=== PATIENT | female | born 1950 | race Caucasian/White ===

== ENCOUNTER 2017-04-03 11:47 | Inpatient (IN) | payer OTHER ==
[2017-04-03] MEDS ORDERED: ONDANSETRON 4 MG/2 ML VIAL IVP PRN (15:25)
[2017-04-03] MEDS ORDERED: ALBUTEROL 3 ML DEYVIAL IH PRN (15:25)
[2017-04-03] MEDS ORDERED: ONDANSETRON DISINTEGRATING 4 MG TAB PO PRN (15:25)
[2017-04-03] MEDS ORDERED: ALBUTEROL 60 PUFFS/8 GM MDI IH PRN (15:25)
[2017-04-03] MEDS ORDERED: OXYCODONE/APAP 5/325 TAB PO PRN (15:25)
[2017-04-03] MEDS ORDERED: IPRATROPIUM BROMIDE 0.5 MG/2.5 ML DEYVIAL IH PRN (15:29)
[2017-04-03] MEDS ORDERED: BENZONATATE 100 MG CAP PO PRN (15:29)
[2017-04-03] MEDS ORDERED: TELMISARTAN 40 MG TAB PO SCH (15:30)
--- NOTE | 2017-04-03 15:31 | NEUSURGPN ---
Assessment/Plan: Consult H/P note Hard copy consult noted completed. This in on the chart in paper form. Neurosurgery Physical Exam - Vitals, I&O, Labs I and O 04/02/17 04/03/17 04/04/17 05:59 05:59 05:59 Weight 26 kg Vital Signs Temp Pulse Resp BP Pulse Ox 36.9 C 59 L 16 164/81 H 95 04/03/17 14:00 04/03/17 14:00 04/03/17 14:00 04/03/17 14:00 04/03/17 14:00 ICD10 Worksheet Patient Problems: Problems Problem Status Onset Cervical radicular pain Acute Cervical stenosis of spine Acute Lumbar back pain Acute Lumbar radicular pain Acute Lumbar stenosis Acute - ICD10 Problem Qualifiers (1) Cervical stenosis of spine (2) Cervical radicular pain (3) Lumbar back pain (4) Lumbar stenosis (5) Lumbar radicular pain
--- NOTE | 2017-04-03 16:10 | CPEKG ---
Heart Rate: 56 RR Interval: 1071 P-R Interval: 208 QRSD Interval: 104 QT Interval: 420 QTC Interval: 406 P [place]: 42 QRS [place]ern: -12 T Wave [place]: 156 EKG Severity - ABNORMAL ECG - EKG Impression: SINUS RHYTHM EKG Impression: NONSPECIFIC T ABNORMALITIES, ANT-LAT LEADS Electronically Signed By: Ke Valladares 03-Apr-2017 17:47:37
--- NOTE | 2017-04-03 16:19 | GHP ---
[f rep st] HISTORY AND PHYSICAL DATE OF ADMISSION: 04/03/2017 CHIEF COMPLAINT: Lumbar back pain. HISTORY OF PRESENT ILLNESS: This is a 67-year-old female who reports that she initially had a cervical neck injury 32 years prior. Then in 2013, because of severe lumbar back pain, she had an extensive fusion performed from L3 to S1 by Dr. Hinton. 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 The pain radiates from her lumbar spine region to the anterior thigh and into her buttocks bilaterally. The pain is incapacitating, decreasing her mobility significantly. Normally, for the last 5 years, she has been ambulatory on her own so long as she had something to hold onto, and then when outside, would use a walker or an electric wheelchair. She lives alone and manages by herself with the help of a caregiver coming 2 hours a day 5 days a week. She has progressively been incapacitated due to the pain and immobility for the last 2 months. PAST MEDICAL HISTORY: Known asthma, currently under treatment; hypertension and glaucoma. She denies diabetes or prior coronary artery disease. PAST SURGICAL HISTORY: She has had the 2 toes amputated on the right foot in 2010. A cholecystectomy was performed in December of 2016. Left breast was biopsied in 1994, with multiple biopsies with findings of a benign tumor, and then there was a left breast reconstruction. Oophorectomy in 1990, total vaginal hysterectomy and appendectomy in 1980, along with a tonsillectomy in 1967. ALLERGIES: Lyrica, causing agitation. Neurontin, she reports makes her homicidal. Depakote makes her shaky. Dye in myelograms causes her to itch. Lisinopril causes lip swelling and difficulty breathing. Albuterol makes her high and shaky. Adhesives cause welts and watery blisters on her skin. REVIEW OF SYSTEMS: The patient reports she has not felt well in the last 15 years and feels very depressed. She says nothing makes her happy. Medically, she denies any recent fever, chills, sweats, sore throat, cough, chest pain, shortness of breath, abdominal pain, dysuria frequency of urination, chronic kidney disease, or peripheral joint difficulties. She does have a known peripheral neuropathy bilaterally in both of her feet starting at the ankles, with decreased sensation but not decreased motor function in her feet bilaterally. The remainder of a 10-point review of systems was negative. SOCIAL HISTORY: The patient lives alone in a single family home, on 1 level. She lives in [place]. She has a caregiver who assists 2 hours a day 5 days a week. Previously, she had worked in medical records and insurance billing. She is currently . She has been twice, with the first dying of cancer and the second dying of a stroke. FAMILY HISTORY: Positive for hypertension in her mother and father. Her son had malignant hyperthermia as a child. PHYSICAL EXAMINATION: GENERAL: This is a pleasant female who reports she is feeling in pain. VITAL SIGNS: She was initially normal blood pressure but then kadi later during the hospitalization. Heart rate normal. She has normal oxygenation on room air and is afebrile. HEENT: Remarkable for normal posterior oropharynx, but small and narrow. NECK: Supple and nontender. Cervical spines are nontender. The overall body habitus is that of an obese lady. CHEST: Chest wall is difficult to palpate overall, but she has no inspiratory splinting. The patient could not move much during my exam due to extreme lumbar back pain. Lungs were clear to percussion and auscultation. HEART: Very distant heart sounds. No murmur could be appreciated. Breasts are without masses, tenderness or erythema. ABDOMEN: Obese, surgical scar is noted and healing well. There are no masses, tenderness, or organomegaly. Palpation of the upper thigh and lower back results in increase in the patient' s pain as she reports pain radiates from her back into these areas. Any movement of her legs results in increasing lumbar back pain. The feet show decreased sensations bilaterally. She has normal dorsi and plantar flexion. The right foot is remarkable for the amputation of her great toe and 2nd toe. LABORATORY DATA: CBC, TSH, urinalysis, CMP are pending at the time of this dictation. A chest x-ray and ECG are pending at time of dictation and preoperative evaluation. ASSESSMENT: 1. Severe lumbar back pain secondary to lumbar spinal stenosis at the L2-L3 region, per my reading of the CT scan performed here. The patient has come with a disc of images, which will be reviewed later. At this point, the patient is incapacitated secondary to the pain, nearly unable to move and finds it extremely painful and difficult to walk. She is under consideration for neurosurgical care, and neurosurgery will be consulting. 2. Cervical pain. The patient is under the impression that she must have neck surgery before she has her lumbar surgery. Clinically, her neck is nontender, and this aspect of her history contradicts the findings of her lumbar spine. This should be investigated further with the patient. 3. Asthma. This is currently in good control, and her usual bronchodilators will be continued. 4. Hypertension. She has been normotensive and now slightly high and will restart her usual antihypertensive regime. 5. Pain management will be with her usual medication, along with IV Dilaudid as needed. 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 6. Peripheral neuropathy bilaterally of the lower extremities. This is long- standing and chronic. 7. Depression. Will continue her Cymbalta. I note in her medications she takes regular Klonopin, which may be exacerbating her depression more than helping. Preoperatively, I do not suggest we begin decreasing her medication, but it is certainly a consideration postoperatively. 8. Her deep vein thrombosis prophylaxis places her at high risk, and she will be placed on Lovenox. 9. Code status: DNR; patient has a MOST signed on the chart. This was reviewed with the patient and affirmed. 10. Billing status: The patient will be admitted to inpatient with neurosurgical consultation. Time: This admission required 55 minutes. /[id number]/MODL MTDD
[2017-04-03] MEDS: DULoxetine 30 MG CAP PO SCH ×2 (16:30→20:55)
[2017-04-03] MEDS: (Difluprednate [Durezol] 1 DROP) OP SCH ×2 (16:34→23:14)
[2017-04-03] MEDS: oxyCODONE IR 5 MG TAB PO PRN ×2 (16:52→20:48)
[2017-04-03] MEDS: TEARS/DEXTRAN 70/HYPROMELLOSE 15 ML OPHT.BTL OP SCH ×2 (16:56→23:14)
[2017-04-03] MEDS: MONTELUKAST SODIUM 10 MG TAB PO SCH (20:49)
[2017-04-03] MEDS: clonazePAM 0.5 MG TAB PO SCH (20:49)
[2017-04-03] MEDS: DOCUSATE SODIUM 100 MG CAP PO SCH (20:50)
[2017-04-03] MEDS: LOSARTAN/HCTZ 50/12.5 1 TAB PO SCH (20:54)
[2017-04-03] MEDS ORDERED: NON-FORMULARY NEW DRUG (Losartan/Hydrochlorothiazide [Losartan-Hctz 100-25 Mg Tab] 1 EACH) PO SCH (21:00)
[2017-04-03 21:13] LABS: PLATELET COUNT 217 10^3/uL (150-400)
[2017-04-03 22:12] LABS: INR 0.98 (0.83-1.16); PROTIME(PATIENT) 13.2 SEC (12.0-15.0)
[2017-04-03] MEDS: MELOXICAM 15 MG PO SCH (23:14)
[2017-04-03] MEDS: HYDROmorphONE/DILAUDID 2 MG TAB PO PRN (23:57)
[2017-04-04] MEDS: LOSARTAN/HCTZ 50/12.5 1 TAB PO SCH ×3 (00:02→21:35)
[2017-04-04] MEDS: oxyCODONE IR 5 MG TAB PO PRN ×5 (05:31→23:57)
[2017-04-04] MEDS: LEVOTHYROXINE 150 MCG TAB PO SCH (05:31)
[2017-04-04] MEDS: DOCUSATE SODIUM 100 MG CAP PO SCH ×2 (08:30→21:37)
[2017-04-04] MEDS: clonazePAM 0.5 MG TAB PO SCH ×2 (08:30→21:37)
[2017-04-04] MEDS: CALCIUM CARB W/VIT D 500 MG TAB PO SCH (08:31)
[2017-04-04] MEDS: DULoxetine 30 MG CAP PO SCH ×2 (08:31→21:35)
[2017-04-04] MEDS: POTASSIUM CL 20 MEQ TAB PO SCH (08:31)
[2017-04-04] MEDS: TEARS/DEXTRAN 70/HYPROMELLOSE 15 ML OPHT.BTL OP SCH ×3 (08:32→22:17)
[2017-04-04] MEDS: (Difluprednate [Durezol] 1 DROP) OP SCH ×3 (08:32→22:17)
[2017-04-04] MEDS: HYDROmorphONE/DILAUDID 2 MG TAB PO PRN ×2 (08:44→21:06)
[2017-04-04] MEDS ORDERED: POTASSIUM CHLORIDE 20 MEQ PO SCH (09:00)
[2017-04-04] MEDS ORDERED: ENOXAPARIN 40 MG/0.4 ML SYR SC SCH (09:00)
[2017-04-04] MEDS ORDERED: ALTEPLASE 2 MG VIAL IVP PRN (09:22)
[2017-04-04] MEDS: HYDROmorphONE/DILAUDID 1 MG/ML INJ IVP PRN ×2 (10:02→21:47)
--- NOTE | 2017-04-04 11:03 | PDMN ---
Medical Necessity Medical necessity: Pt meets IP criteria per MD; est los >2 mn for eval/tx of severe lumbar back pain secondary to L2-L3 lumbar spinal stenosis w/inability to walk, as well as cervical pain; pt directly admitted for Neuro Surgery consult, IV pain meds & therapies; hx asthma, htn, peripheral neuropathy; per H& P & order 04/03/17
--- NOTE | 2017-04-04 12:22 | NEUSURGPN ---
Assessment/Plan: 67 yo female female with hx of prior Lumbar fusion, multiple medical problems with horrible back pain, leg pain. C-spine xrays, CT/MRI reviewed. MRI lumbar spine shows L2/3 adjacent segment disease liekly the cuase of her back and leg pain however, MRI C- spine shows severe central canal stenosis at C5-6 and with ossification of the ligaments as well. She will need to address her cervical spien prior to her lumbar spine due to the high risk of paralysis or spinal cord damage with manipulation of her neck while she is prone from lumbar surgery. -Admitted to medicine and will need medical clearance prior to proceeding with surgery. Appreciate medicine service for this! -If cleared for surgery medically, will proceed with C5/C6 corpectomy and fusion. If cleared today/tomorrow, surgery could likely occur this weekend by Dr. Rivera conventions reservationist -Patient with high opioid tolerance and will liekly need pharmacy pain consult prior to surgery to help with postop pain -May be able to get lumbar injection at L2/3 after cervical surgery to help with leg pain while recovering from Cervical Surgery -Discussed with Dr. Rivera Subjective: Patient in severe back and left leg pain, unable to move without being in sever pain. Denies loss of bowel or bladder incontinence. Eager to move forward with surgical plan. Understands that due to risks, cervical surgery needs to occur first. - Physician Discussed Patient with Dr.: Rivera Neurosurgery Physical Exam - Vitals, I&O, Labs I and O 04/03/17 04/04/17 04/05/17 05:59 05:59 05:59 Output Total 1200 300 Balance -1200 -300 Weight 26 kg Output: Urine (ml) 1200 300 Bedside Commode 1200 300 Other: Intake Quantity Yes Sufficient Number of Voids Bedside Commode 1 Vital Signs Temp Pulse Resp BP Pulse Ox 36.8 C 65 16 132/80 H 92 04/04/17 11:13 04/04/17 11:13 04/04/17 11:13 04/04/17 11:13 04/04/17 11:13 Laboratory Results 04/03/17 20:53 04/03/17 20:53 ICD10 Worksheet Patient Problems: Problems Problem Status Onset Cervical radicular pain Acute Cervical stenosis of spine Acute Lumbar back pain Acute Lumbar radicular pain Acute Lumbar stenosis Acute
--- NOTE | 2017-04-04 15:39 | HOSPPROG ---
Hospitalist Progress Note Assessment/Plan: 67-year-old female admitted with severe lower back pain. MRI of the lumbar spine shows L2-L3 disease as the cause of her back and leg pain. MRI of the C- spine shows severe central canal stenosis at C5-6. As result cervical spine surgery needs to be done before lumbar surgery due to cervical neck manipulation for her lumbar surgery. Today the patient's lower back pain continues to be severe and it is very difficult for her to move without severe pain. She denies stool or bladder incontinence. -severe lumbar back pain and central canal. Cervical stenosis at C5 and 6. Plan is for surgery in the next 1-2 days. -patient is medically cleared for surgery. Laboratories are all normal with normal PTT and platelet count. ECG shows only sinus rhythm and is otherwise normal. Chest x-ray is clear. Her activity score would place her at 1-4 Mets per day. The primary limitation is are severe pain. The Revised Cardiac risk Index is 0.4% for adverse cardiovascular events post op due to non cardiac surgery. Overall she will be at some increased risk due to obesity though this can be decreased with pain management, pulmonary care of incentive spirometer, and PT. -Post op pain management: will discuss and plan with pharmacy. -HTN currently in good control. Plan: -patient is medically cleared for surgery -will follow along with you. Subjective: Reports her pain continues with some stabilization although she has very severe pain with any motion. She is able to sit on the side of the bed dangling her legs causes increasing pain. Denies chest pain shortness of breath nausea or vomiting. She is eating and moving her bowels although her appetite is decreased Objective: Vital Signs Temp Pulse Resp BP Pulse Ox 36.8 C 65 16 132/80 H 92 04/04/17 11:13 04/04/17 11:13 04/04/17 11:13 04/04/17 11:13 04/04/17 11:13 Laboratory Results 04/03/17 20:53 04/03/17 20:53 04/03/17 04/04/17 04/05/17 05:59 05:59 05:59 Output Total 1200 300 Balance -1200 -300 PT 13.2 SEC (12.0-15.0) 04/03/17 20:53 INR 0.98 (0.83-1.16) 04/03/17 20:53 - Time Spent With Patient Time Spent with Patient: greater than 35 minutes Time Spent with Patient: Greater than 35 minutes spent on this patients care, greater than 50% of time spent counseling, educating, and coordinating care regarding the above mentioned plan. - Pending Discharge Pending Discharge Within 24 Hours: No Pending Discharge Within 48 Hours: No - Physical Exam Constitutional: chronically ill appearing, other (Chronic illness secondary to chronic pain.) Eyes: PERRL, anicteric sclera Ears, Nose, Mouth, Throat: moist mucous membranes, hearing normal, ears appear normal Cardiovascular: regular rate and rhythym, no murmur, rub, or gallop Respiratory: no respiratory distress, no rales or rhonchi, clear to auscultation Gastrointestinal: normoactive bowel sounds, soft, non-tender abdomen, no palpable masses, other (Obese) Genitourinary: no bladder fullness Skin: warm Musculoskeletal: other (Tenderness to palpation and pain in the upper thighs and lower lumbar back. Any movement of the legs increases her low back pain. Muscle muscle strength is otherwise decreased secondary to pain) Neurologic: AAOx3, CN II-XII Intact Psychiatric: interacting appropriately ICD10 Worksheet Patient Problems: Problems Problem Status Onset Cervical radicular pain Acute Cervical stenosis of spine Acute Lumbar back pain Acute Lumbar radicular pain Acute Lumbar stenosis Acute
[2017-04-04] MEDS: MONTELUKAST SODIUM 10 MG TAB PO SCH (21:36)
[2017-04-04] MEDS: ENOXAPARIN 40 MG/0.4 ML SYR SC SCH (21:41)
[2017-04-04] MEDS: MELOXICAM 15 MG PO SCH (22:17)
[2017-04-05] MEDS: ACETAMINOPHEN 325 MG TAB PO PRN ×2 (00:52→16:21)
[2017-04-05] MEDS: HYDROmorphONE/DILAUDID 2 MG TAB PO PRN ×3 (02:09→16:56)
[2017-04-05] MEDS: HYDROmorphONE/DILAUDID 1 MG/ML INJ IVP PRN (03:12)
[2017-04-05] MEDS: LEVOTHYROXINE 150 MCG TAB PO SCH (04:37)
[2017-04-05] MEDS: oxyCODONE IR 5 MG TAB PO PRN ×3 (04:38→21:56)
[2017-04-05] MEDS ORDERED: NALOXONE HCL 0.4 MG/ML INJ IVP PRN (08:04)
[2017-04-05] MEDS ORDERED: HYDROmorphONE/DILAUDID 6 MG/30 ML PCA IV PRN (08:04)
[2017-04-05] MEDS: CALCIUM CARB W/VIT D 500 MG TAB PO SCH (08:10)
[2017-04-05] MEDS: DOCUSATE SODIUM 100 MG CAP PO SCH ×2 (08:11→21:55)
[2017-04-05] MEDS: DULoxetine 30 MG CAP PO SCH ×2 (08:11→20:07)
[2017-04-05] MEDS: POTASSIUM CL 20 MEQ TAB PO SCH (08:11)
[2017-04-05] MEDS: (Difluprednate [Durezol] 1 DROP) OP SCH ×2 (08:11→16:53)
[2017-04-05] MEDS: clonazePAM 0.5 MG TAB PO SCH ×2 (08:11→20:06)
[2017-04-05] MEDS: TEARS/DEXTRAN 70/HYPROMELLOSE 15 ML OPHT.BTL OP SCH ×3 (08:19→23:17)
[2017-04-05] MEDS: ENOXAPARIN 40 MG/0.4 ML SYR SC SCH (08:19)
--- NOTE | 2017-04-05 10:11 | HOSPPROG ---
Hospitalist Progress Note Assessment/Plan: 67-year-old female admitted with severe lower back pain. MRI of the lumbar spine shows L2-L3 disease as the cause of her back and leg pain. MRI of the C- spine shows severe central canal stenosis at C5-6. As result cervical spine surgery needs to be done before lumbar surgery due to cervical neck manipulation for her lumbar surgery. today patient pain 7/10 in low back, neck in without pain; Bp is elevated without c/o chest pain. Nursing report wheezing. -severe lumbar back pain and central canal. Cervical stenosis at C5 and 6. Plan is for surgery tomorrow AM is planned for neck -patient is medically cleared for surgery. Laboratories are all normal with normal PTT and platelet count. ECG shows only sinus rhythm and is otherwise normal. Chest x-ray is clear. Her activity score would place her at 1-4 Mets per day. The primary limitation is are severe pain. The Revised Cardiac risk Index is 0.4% for adverse cardiovascular events post op due to non cardiac surgery. Overall she will be at some increased risk due to obesity though this can be decreased with pain management, pulmonary care of incentive spirometer, and PT. -Post op pain management: currently pain is 7/10 in low back. Current pain management included: Klonopin, oxycodone IR 20mg q4h, and norco q4h. Plan: Robaxin 750mg tid Obtain pain management records from PCP Dr Nikita Berger, at [facility] in [place]. Records have been requested. The question here is to avoid excess sedation while obtaining adequate pain relief. Monitor SaO2 -HTN slight elevated. Plan:-add norvasc. Patient allergic to Torito and is bradycardic thus cannot use BB -Wheezing question: none noted on exam, continue Prn albuterol Plan: -patient is medically cleared for surgery -will follow along with you. -pain management per above -records requested. -avoid ASA and NSAID meds pre-op -hold lovenox tonight Subjective: Reports she is feeling tired but encouraged that there will be surgery and possible relief of her pain. Procedure for her cervical work and then lumbar work were explained to her. She denies bowel or bladder incontinence Objective: Vital Signs Temp Pulse Resp BP Pulse Ox 36.8 C 53 L 16 147/90 H 95 04/05/17 08:21 04/05/17 08:21 04/05/17 08:21 04/05/17 08:21 04/05/17 08:21 Laboratory Results 04/03/17 20:53 04/03/17 20:53 04/04/1718 04/06/17 05:59 05:59 05:59 Intake Total 500 500 Output Total 1200 1100 Balance -1200 -600 500 PT 13.2 SEC (12.0-15.0) 04/03/17 20:53 INR 0.98 (0.83-1.16) 04/03/17 20:53 - Time Spent With Patient Time Spent with Patient: greater than 35 minutes Time Spent with Patient: Greater than 35 minutes spent on this patients care, greater than 50% of time spent counseling, educating, and coordinating care regarding the above mentioned plan. - Pending Discharge Pending Discharge Within 24 Hours: No Pending Discharge Within 48 Hours: No - Physical Exam Constitutional: no apparent distress, chronically ill appearing, other (Appears to be in pain and discomfort) Eyes: PERRL, anicteric sclera Ears, Nose, Mouth, Throat: moist mucous membranes, hearing normal Cardiovascular: regular rate and rhythym, no murmur, rub, or gallop Respiratory: no respiratory distress, no rales or rhonchi, clear to auscultation , other (No inspiratory or expiratory wheezing noted) Gastrointestinal: normoactive bowel sounds, soft, non-tender abdomen, no palpable masses, other (Obesity noted) Genitourinary: no bladder fullness Skin: warm Musculoskeletal: generalized weakness, other (Pain in the upper thighs to palpation and with any movement of her legs.) Neurologic: AAOx3, CN II-XII Intact Psychiatric: interacting appropriately ICD10 Worksheet Patient Problems: Problems Problem Status Onset Cervical radicular pain Acute Cervical stenosis of spine Acute Lumbar back pain Acute Lumbar radicular pain Acute Lumbar stenosis Acute
--- NOTE | 2017-04-05 11:19 | ASMTCMCOM ---
CM Note CM Note Notes: Chart reviewed, spoke with primary RN. Patient to likely have C-spine surgery this weekend and maybe spinal injection after that. Needs to be determined after that. CM to follow. Date Signed: 04/05/2017 11:18 AM Electronically Signed By:Chanda Sabillon LCSW
--- NOTE | 2017-04-05 11:31 | SOAPPROG ---
[facility] Progress Note Assessment/Plan: Assessment: 67F admitted with back pain and was found to have severe cervical stenosis at C5-6 from OPLL with focal kyphosis. Plan: - She will need to have her cervical issue fixed before we can work on her lumbar spine - planning C5-6 corpectomy for tomorrow - NPO after midnight - appreciate medicine help with pain management - I did discuss with her that the hyperesthesia that she is complaining of in the legs I don't expect to get better with any surgical procedure. This is most likely part of her chronic pain syndrome. I also don't expect much improvement in her back pain, but would hope she would get some relief with the neurogenic claudication once we are able to do her lumbar surgery. We will plan to proceed tomorrow with the C5-6 corpectomy, C4-7 fusion. 04/05/17 11:25 Subjective: complains of back pain Objective: Vital Signs Temp Pulse Resp BP Pulse Ox 36.8 C 53 L 16 147/90 H 95 04/05/17 08:21 04/05/17 08:21 04/05/17 08:21 04/05/17 08:21 04/05/17 08:21 Laboratory Results 04/03/17 20:53 04/03/17 20:53 04/04/17 04/05/17 04/06/17 05:59 05:59 05:59 Intake Total 500 500 Output Total 1200 1100 Balance -1200 -600 500 PT 13.2 SEC (12.0-15.0) 04/03/17 20:53 INR 0.98 (0.83-1.16) 04/03/17 20:53 AAOx3, full strength and sensation, no drift, hyperesthesia in the legs, non- dermatomal - Pending Discharge Pending Discharge Within 24 Hours: No Pending Discharge Within 48 Hours: No ICD10 Worksheet Patient Problems: Problems Problem Status Onset Cervical radicular pain Acute Cervical stenosis of spine Acute Lumbar back pain Acute Lumbar radicular pain Acute Lumbar stenosis Acute
[2017-04-05] MEDS: amLODIPine BESYLATE 5 MG TAB PO SCH (11:57)
[2017-04-05] MEDS: METHOCARBAMOL 750 MG TAB PO SCH ×2 (16:21→21:56)
[2017-04-05] MEDS: clonazePAM 0.5 MG TAB PO PRN (18:50)
[2017-04-05] MEDS: HYDROCODONE/APAP 5/325 TAB PO PRN (20:07)
[2017-04-05] MEDS: MONTELUKAST SODIUM 10 MG TAB PO SCH (20:08)
[2017-04-05] MEDS: LOSARTAN/HCTZ 50/12.5 1 TAB PO SCH (20:14)
[2017-04-05] MEDS ORDERED: NS W/ 20 KCl/L 1,000 ML IV SCH (22:30)
[2017-04-05] MEDS ORDERED: hydrALAZINE 20 MG/ML VIAL IVP ONE (22:48)
[2017-04-06] MEDS: HYDROmorphONE/DILAUDID 2 MG TAB PO PRN ×2 (00:56→04:43)
[2017-04-06] MEDS: oxyCODONE IR 5 MG TAB PO PRN ×3 (02:17→18:17)
[2017-04-06] MEDS: (Difluprednate [Durezol] 1 DROP) OP SCH ×4 (03:31→22:00)
[2017-04-06] MEDS: MELOXICAM 15 MG PO SCH ×2 (03:32→23:21)
[2017-04-06] MEDS: clonazePAM 0.5 MG TAB PO PRN ×2 (04:44→17:47)
[2017-04-06] MEDS: LEVOTHYROXINE 150 MCG TAB PO SCH (04:44)
[2017-04-06 05:13] LABS: PLATELET COUNT 200 10^3/uL (150-400)
[2017-04-06 05:22] LABS: INR 1.07 (0.83-1.16); PROTIME(PATIENT) 14.1 SEC (12.0-15.0)
[2017-04-06] MEDS ORDERED: CHLORHEXIDINE GLUC HIBICLENS 118 ML BTL TP ONE ×2 (06:31→07:53)
[2017-04-06] MEDS: FLUTICASONE NASAL 120 SPRAYS/16 GM MDI EACHNARE SCH (06:50)
[2017-04-06] MEDS ORDERED: ROCURONIUM 100 MG/10 ML VIAL ONE (07:51)
[2017-04-06] MEDS ORDERED: fentaNYL 100 MCG/2 ML INJ ONE ×5 (07:51→13:23)
[2017-04-06] MEDS ORDERED: HYDROmorphONE/DILAUDID 2 MG/ML INJ ONE ×3 (07:51→13:33)
[2017-04-06] MEDS ORDERED: PROPOFOL 200 MG/20 ML VIAL ONE (07:52)
[2017-04-06] MEDS: clonazePAM 0.5 MG TAB PO SCH ×2 (07:52→21:20)
[2017-04-06] MEDS ORDERED: THROMBIN (BOVINE) 5,000 UNIT VIAL TP ONE (07:54)
[2017-04-06] MEDS ORDERED: BUPIVACAINE 0.25% 30 ML SDV ONE (07:54)
[2017-04-06] MEDS ORDERED: BACITRACIN 50,000 UNITS/10 ML SYR IRR ONE ×2 (07:54→08:06)
[2017-04-06] MEDS ORDERED: THROMBIN (BOVINE) 20,000 UNIT VIAL TP ONE (08:05)
[2017-04-06] MEDS ORDERED: KETAMINE 200 MG/20 ML VIAL ONE (08:13)
[2017-04-06] MEDS ORDERED: PROPOFOL/EMULSION 500 MG/50 ML BOTTLE IV ONE ×8 (08:13→13:13)
[2017-04-06] MEDS ORDERED: DEXMEDETOMIDINE/NS 4MCG/ML 50 ML BTL IV ONE ×3 (08:16→15:49)
[2017-04-06] MEDS ORDERED: MIDAZOLAM 2 MG/2 ML VIAL IVP ONE (08:28)
--- NOTE | 2017-04-06 08:31 | PDANEPAE ---
ANE History of Present Illness cervical stenosis ANE Past Medical History Past Medical History: fm of - Cardiovascular History Hx Hypertension: Yes - Pulmonary History Hx Asthma/Reactive Airway Disease: Yes Hx Oxygen in Use at Home: Yes O2 in Use at Home (L/minute): 2 Hx Sleep Apnea: No Sleep Apnea Screening Result - Last Documented: Positive - Endocrine History Hx Diabetes: No Obesity: moderate - Other Health History Other Health History: Family history of MH - Chronic Pain History Chronic Pain: Yes ANE Review of Systems Review of Systems: - Exercise capacity Exercise capacity: limited by disability ANE Patient History - Allergies Allergies/Adverse Reactions: albuterol Allergy (Verified 04/03/17 13:43) divalproex sodium [From Depakote] Allergy (Verified 04/03/17 13:43) gabapentin Allergy (Verified 04/03/17 13:43) lisinopril Allergy (Verified 04/03/17 13:43) pregabalin [From Lyrica] Allergy (Verified 04/03/17 13:39) ADHESIVES Allergy (Uncoded 04/03/17 13:43) MYLEGRAM DYE Allergy (Uncoded 04/03/17 13:43) - Home Medications Home Medications: Benzonatate [Tessalon Pearles (RX)] 100 mg PO TID PRN 04/03/17 [Last Taken Unknown] Calcium Carb W/Vit D [Calcium Carb W/Vit D 500/200 (*)] 1,000 mg PO DAILY [Last Taken Unknown] DULoxetine [Cymbalta 30 MG (*)] 30 mg PO DAILY 04/03/17 [Last Taken 04/03/17] DULoxetine [Cymbalta 30 MG (*)] 60 mg PO HS 04/03/17 [Last Taken 04/02/17] Dextran 70/Hypromellose [Genteal Tears 0.1%-0.3% Drop] 1 drop OP TID 04/03/17 [ Last Taken Unknown] Difluprednate [Durezol] 1 drop OP TID 04/03/17 [Last Taken Unknown] Docusate Sodium [Colace 100 MG (*)] 200 mg PO BID 04/03/17 [Last Taken 04/03/17] HYDROmorphone HCL [Dilaudid 2 mg (*)] 2 mg PO Q4 PRN 04/03/17 [Last Taken Unknown] Ipratropium [Atrovent Neb (*)] 0.5 mg IH DAILY PRN 04/03/17 [Last Taken Unknown] Levothyroxine [Synthroid 150 mcg (*)] 150 mcg PO DAILY06 04/03/17 [Last Taken ] Losartan/Hydrochlorothiazide [Losartan-Hctz 100-25 mg Tab] 1 each PO HS [Last Taken Unknown] Meloxicam [Mobic 15 mg] 15 mg PO HS 04/03/17 [Last Taken 04/02/17] Montelukast Sodium [Singulair 10 mg (*)] 10 mg PO HS 04/03/17 [Last Taken Unknown] Oxymetazoline HCl [Afrin Nasal [place] (OTC)] 1 spray EACHNARE BID 04/03/17 [Last Taken Unknown] Potassium Chloride [K-Tab ER] 20 meq PO DAILY 04/03/17 [Last Taken 04/03/17] Telmisartan [Micardis 40 mg (*)] 40 mg PO DAILY 04/03/17 [Last Taken 04/03/17] clonIDINE [Catapres (*)] 0.1 mg PO BID 04/03/17 [Last Taken 04/03/17] clonIDINE [Catapres (*)] 0.1 mg PO HS PRN 04/03/17 [Last Taken Unknown] clonazePAM [Klonopin (*)] 0.5 mg PO DAILY 04/03/17 [Last Taken 04/03/17] clonazePAM [Klonopin (*)] 0.5 mg PO TID PRN MDD 2.5MG 04/03/17 [Last Taken Unknown] clonazePAM [Klonopin (*)] 1 mg PO HS 04/03/17 [Last Taken Unknown] oxyCODONE IR [Oxycodone Ir (*)] 20 mg PO Q4 PRN 04/03/17 [Last Taken 04/03/17] - NPO status NPO Status: no food or drink >8 hours NPO Since - Liquids (Date): 04/06/17 NPO Since - Liquids (Time): 00:00 NPO Since - Solids (Date): 04/06/17 NPO Since - Solids (Time): 00:00 - Smoking Hx Smoking Status: Never smoked ANE Labs/Vital Signs - Labs Result Diagrams: 04/06/17 04:50 04/06/17 04:50 - Vital Signs Blood Pressure: 170/96 Heart Rate: 59 Respiratory Rate: 17 O2 Sat (%): 94 Height: 170.18 cm Weight: 117.934 kg ANE Physical Exam - Airway Neck exam: decreased ROM Mallampati Score: Class 3 Mouth exam: normal dental/mouth exam - Pulmonary Pulmonary: no respiratory distress - Cardiovascular Cardiovascular: regular rate and rhythym - ASA Status ASA Status: IV ANE Anesthesia Plan Anesthesia Plan: general endotracheal anesthesia ( precautions in place) Total IV Anesthesia: Yes
[2017-04-06] MEDS ORDERED: MIDAZOLAM 2 MG/2 ML VIAL ONE (08:32)
[2017-04-06] MEDS ORDERED: LACTULOSE 20 GM/30 ML UDCUP PO PRN (08:37)
[2017-04-06] MEDS ORDERED: MAGNESIUM HYDROXIDE 30 ML UDCUP PO PRN (08:37)
[2017-04-06] MEDS ORDERED: POLYETHYLENE GLYCOL 3350 17 GM PKT PO PRN (08:37)
[2017-04-06] MEDS ORDERED: BISACODYL 10 MG SUPP PR PRN (08:37)
[2017-04-06] MEDS ORDERED: SURGIFLO MATRIX KIT WITH THROMBIN 8ml TP ONE (11:00)
[2017-04-06] MEDS ORDERED: fentaNYL 100 MCG/2 ML INJ IVP PRN (13:27)
[2017-04-06] MEDS ORDERED: NALOXONE HCL 0.4 MG/ML INJ IVP PRN ×2 (13:27→14:12)
[2017-04-06] MEDS ORDERED: PROMETHAZINE HCL 25 MG/ML INJ IVP PRN (13:27)
[2017-04-06] MEDS ORDERED: DEXAMETHASONE 4 MG/ML VIAL IVP PRN (13:27)
[2017-04-06] MEDS ORDERED: HYDROmorphONE/DILAUDID 1 MG/ML INJ IVP PRN (13:27)
[2017-04-06] MEDS ORDERED: NS W/ 20 KCl/L 1,000 ML IV SCH (14:15)
--- NOTE | 2017-04-06 14:18 | SOAPPROG ---
SOAP Progress Note Assessment/Plan: Assessment: 67 yo F sp C5/6 corpectomy with C4-7 plating Plan: stable HOB up 30 degrees hard collar at all times JAVIER to suction please call with neuro changes 04/06/17 14:16 Subjective: + neck pain, no arm pain. Objective: Vital Signs Temp Pulse Resp BP Pulse Ox 36.9 C 59 L 17 170/96 H 94 04/06/17 07:41 04/06/17 08:31 04/06/17 08:31 04/06/17 08:31 04/06/17 08:31 Laboratory Results 04/06/17 04:50 04/06/17 04:50 04/05/17 04/06/17 04/07/17 05:59 05:59 05:59 Intake Total 500 900 400 Output Total 1100 800 Balance -600 100 400 PT 14.1 SEC (12.0-15.0) 04/06/17 04:50 INR 1.07 (0.83-1.16) 04/06/17 04:50 somnolent PERRL, no facial droop COREY x4 + light touch C/D/I ICD10 Worksheet Patient Problems: Problems Problem Status Onset Cervical radicular pain Acute Cervical stenosis of spine Acute Lumbar back pain Acute Lumbar radicular pain Acute Lumbar stenosis Acute
--- NOTE | 2017-04-06 14:25 | POSTANESTH ---
Post Anesthetic Evaluation Cardiovascular Status: Normal, Stable Respiratory Status: Normal, Stable Level of Consciousness/Mental Status: Mildly Sleepy, Arousable Pain Control: Adequate, Prn Tx Ordered Nausea/Vomiting Control: Adequate, Prn Tx Ordered Complications Possibly Related to Anesthesia: None Noted
[2017-04-06] MEDS ORDERED: DEXMEDETOMIDINE HCL 400 MCG in NS 100 ML IV SCH (14:30)
--- NOTE | 2017-04-06 14:53 | HOSPPROG ---
Hospitalist Progress Note Assessment/Plan: Assessment: 67-year-old female admitted with severe lower back pain in setting of severe C5-C6 stenosis and L2-L3 disease Plan: # Cervical stenosis. C5-C6, severe, POD#[address] Rivera - JAVIER drain anteriorly - received high doses of IV dilaudid, difficult pain mgmt, transferring to SDU for possible precedex as she wakes up - d/w Avinash Fabian NSGY provider, reports CSF leak, bedrest orders # Chronic pain w/ continuous opiate and benzodiazepine dependency. Patient on two short-acting opiates as outpt, will d/w patient tomorrow to determine best methods moving forward - trialing robaxin scheduled - bowel regimen # HTN. Chronic, added norvasc, monitor # Suspected atelectasis. Cont IS # Morbid Obesity. BMI 40, increases post-op risk of worsening mobility/morbidity - PT/OT - will likely require SNF at [place] Diet. Regular when wakes PPx. High risk, SCDs today, plan for lovenox when JAVIER drainage slows Code. DNR Dispo. ADD uncertain Subjective: resting comfortably, able to follow commands Objective: Vital Signs Temp Pulse Resp BP Pulse Ox 36 C 59 L 11 L 123/77 H 96 04/06/17 14:23 04/06/17 08:31 04/06/17 14:36 04/06/17 14:36 04/06/17 14:36 Laboratory Results 04/06/17 04:50 04/06/17 04:50 04/05/17 04/06/17 04/07/17 05:59 05:59 05:59 Intake Total 500 900 400 Output Total 1100 800 Balance -600 100 400 PT 14.1 SEC (12.0-15.0) 04/06/17 04:50 INR 1.07 (0.83-1.16) 04/06/17 04:50 - Physical Exam Constitutional: no apparent distress, not in pain, chronically ill appearing, obese, No uncomfortable Cardiovascular: edema (trace bilat LE), No systolic murmur, No irregularly irregular, No tachycardia Respiratory: no respiratory distress, no rales or rhonchi, clear to auscultation , reduced air movement (shallow) Gastrointestinal: normoactive bowel sounds, soft, non-tender abdomen, no palpable masses, No distension Skin: other (ruborous L great toe) Musculoskeletal: other (R great toe TMA) Psychiatric: not anxious, encephalopathic, flat affect, No agitated ICD10 Worksheet Patient Problems: Problems Problem Status Onset Cervical radicular pain Acute Cervical stenosis of spine Acute Lumbar back pain Acute Lumbar radicular pain Acute Lumbar stenosis Acute
[2017-04-06] MEDS: CALCIUM CARB W/VIT D 500 MG TAB PO SCH (15:02)
[2017-04-06] MEDS: DOCUSATE SODIUM 100 MG CAP PO SCH ×2 (15:02→21:21)
[2017-04-06] MEDS: TEARS/DEXTRAN 70/HYPROMELLOSE 15 ML OPHT.BTL OP SCH ×3 (15:03→22:00)
[2017-04-06] MEDS: POTASSIUM CL 20 MEQ TAB PO SCH (15:04)
[2017-04-06] MEDS: SENNOSIDES/DOCUSATE SODIUM TAB PO SCH ×2 (15:04→21:00)
[2017-04-06] MEDS: METHOCARBAMOL 750 MG TAB PO SCH ×4 (15:04→23:25)
[2017-04-06] MEDS: amLODIPine BESYLATE 5 MG TAB PO SCH (15:50)
[2017-04-06] MEDS: DEXMEDETOMIDINE IN 0.9 % NACL 50 ML IV SCH ×4 (15:59→23:30)
[2017-04-06] MEDS: DULoxetine 30 MG CAP PO SCH ×2 (16:00→21:00)
[2017-04-06] MEDS: POTASSIUM Cl (KCl) 20 MEQ in NS 1,000 ML IV SCH (16:15)
--- NOTE | 2017-04-06 16:56 | GOP ---
[f rep st] OPERATIVE REPORT DATE OF OPERATION: 04/06/2017 SURGEON: Hema Rivera MD NEUROSURGEON: Hema Rivera MD POLICEWOMAN: Avinash Fabian PA-C ANESTHESIA: General endotracheal. 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 PROCEDURE PERFORMED: 1. C5, C6 corpectomy. 2. Placement of interbody corpectomy cage at C5-C6. 3. Anterior instrumented fusion C4-C7. 4. Microsurgical removal of posterior osteophytes with spinal cord compression. 5. O-arm stereotactic navigation for localization of levels and decompression. 6. Use of the operative microscope. 7. Intraoperative neurophysiologic monitoring including somatosensory evoked potentials and motor evoked potentials. FINDINGS: successful corpectomy with CSF leak BRIEF CLINICAL HISTORY: Blanca Solitario is a 67-year-old woman with history of lumbar fusions who presented to my partner, Dr. Fregoso' office, with low back pain. 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 However, she was also found to have a focal kyphosis at C5-6 in the cervical spine with posterior osteophyte formation consistent with ossification of the posterior longitudinal ligament. There was severe canal stenosis and some right-sided cord compression, although she does not have symptoms of myelopathy. Prior to any further lumbar surgery which would require her to be prone we felt it best that she have the cervical spine decompressed. We proceeded electively today with that procedure. ESTIMATED BLOOD LOSS: 150 mL. DESCRIPTION OF PROCEDURE: After informed consent was obtained from the patient , the patient was brought to the operating room and was placed in the supine position on the operating table. A formal time-out was performed, identifying the patient by name, medical record number, and date of . Preoperative antibiotics were given. The endotracheal tube was placed and general endotracheal anesthesia was smoothly induced. The patient's head was placed in the Arteaga pins and the neck was extended. All appropriate leads were placed for intraoperative neurophysiologic monitoring and baseline potentials were obtained. The neck was then prepped and draped in the normal sterile fashion. The O-arm was brought into the field and a stereotactic spin showing the skull base down to the thoracic spine was obtained. Using the spin we were able to stereotactically localize the level of the incision. 10 mL of 0.25% Marcaine with epinephrine was infiltrated in the skin for hemostasis. We then made the skin incision and the subcutaneous tissues were dissected using monopolar electrocautery. The platysma was identified and the platysma was then opened in line with its fibers. The medial border of the sternocleidomastoid was dissected widely and the carotid artery was retracted slightly laterally. The prevertebral fascia was opened and again the Stealth was used to localize the area over the C5 vertebral body. We then cleared the anterior surface of the spine of its fascial attachments and the longus colli muscles were elevated from the lower portion of C4 to the upper portion of C7 on both sides. Self- retaining retractors were placed. The patient's BMI over 45 and the extensive posterior osteophytes involving the dura made the painstaking dissection take much longer than anticipated and doubled the time of the surgery. The Rillito distraction pins were then placed in the C4 and C7 vertebral bodies and some distraction was placed across these spaces. The operative microscope was then brought onto the field and the remainder of the procedure was performed under high-power magnification. We began by performing complete diskectomies at C4-5 and C6-7. The posterior longitudinal ligament was opened toward the left side where the osteophytes were not as prominent. The dura was identified and the posterior longitudinal ligament was completely opened. On the right side at C6- 7 it was very difficult to visualize the dura due to the OPLL and this portion was left for later. After both diskectomies had been performed the C5 and C6 vertebral bodies were completely removed in the midline using Leksell rongeurs. Once we had thinned the posterior aspect toward the central canal the high- speed drill was used to drill a trough and then Kerrison punches were carefully used to undercut the bone on the left side where there was a nice dural plane. We were then able to visualize the osteophytes in their extent and they were growing significantly into the dura. Careful manipulation and drilling with the 2 mm sharad drill bit was performed and we attempted to thin the bone such that we could decompress the thecal sac without completely removing the bone which was completely incorporated into the dura. This was not possible as when we had finally drilled through the bone there was no remaining dura. There were a few small pin holes in the arachnoid which were slightly leaking CSF. Ultimately as we continued to remove the osteophytes the dura from this portion of the spinal canal was removed completely along with them. The anterior surface of the spinal cord was well visualized and the motor evoked potentials remained stable throughout this entire part of the procedure. Eventually after painstaking dissection, we were able to completely decompress the lateral spinal canal on the right side. The potentials again remained stable and the nerves appeared to be well decompressed laterally. Once these osteophytes were completely removed the canal seemed to be well decompressed. At this point, all bleeding was controlled using bipolar electrocautery and Gelfoam. A piece of onlay DuraGen was then cut to size and placed over the arachnoid, reconstructing the thecal sac. This was covered with some powdered Gelfoam. The wound was then copiously irrigated. The endplates were then sized for a 40 mm cage and the stackable Medtronic PTC cages were then stacked into a cage of 40 mm and packed with the locally harvested autograft from the vertebral bodies. This was then placed into the interspace between C4 and C7 under direct vision. At this point, a 2nd O-arm spin was obtained showing a good alignment of the cage as we were unable to see it with x-rays through the shoulders. At this point, the anterior surface was sized for a 55 mm [place] translational plate which was secured to the C4 and C7 vertebral bodies using 4 x 16 mm screws. A single 4 x 11 mm screw was placed into the cage to hold it in place to the plate. X-rays were obtained after the plate placement to be sure that the screws were in good position. They appeared to be. Again, the motor evoked potentials and somatosensory-evoked potentials remained stable. At this point the wound was copiously irrigated using bacitracin irrigation. A JAVIER drain was placed in the prevertebral space and tunneled out sterilely. All bleeding was controlled with bipolar electrocautery. The platysma was closed using interrupted 3-0 Vicryl. Deep dermis was closed using interrupted 3-0 Vicryl. The skin was closed using Dermabond. Sterile dressings were placed. The patient was awakened in the operating room. She was taken the PACU in stable condition. There were no operative complications. I was scrubbed and present for the entire procedure. All sponge and needle counts were correct at the end of the case. FLUIDS AND URINE OUTPUT: Per the anesthesia record. DRAIN: A prevertebral JAVIER. /[id number]/MODL MTDD
[2017-04-06] MEDS: HYDROmorphONE/DILAUDID 1 MG/ML INJ IVP PRN ×2 (17:08→21:21)
[2017-04-06] MEDS: ceFAZolin 2 GM/SWFI 2 GM/20 ML SYR IVP SCH (21:59)
[2017-04-06] MEDS: LOSARTAN/HCTZ 50/12.5 1 TAB PO SCH (23:25)
[2017-04-07] MEDS: DEXMEDETOMIDINE IN 0.9 % NACL 50 ML IV SCH ×4 (03:30→18:54)
[2017-04-07] MEDS: ceFAZolin 2 GM/SWFI 2 GM/20 ML SYR IVP SCH (04:59)
[2017-04-07] MEDS: LEVOTHYROXINE 150 MCG TAB PO SCH (04:59)
[2017-04-07] MEDS: MONTELUKAST SODIUM 10 MG TAB PO SCH ×2 (05:00→20:41)
[2017-04-07] MEDS: HYDROmorphONE/DILAUDID 1 MG/ML INJ IVP PRN (05:09)
[2017-04-07 05:28] LABS: PLATELET COUNT 177 10^3/uL (150-400)
[2017-04-07] MEDS: POTASSIUM Cl (KCl) 20 MEQ in NS 1,000 ML IV SCH (05:36)
--- NOTE | 2017-04-07 06:49 | NEUSURGPN ---
Date of Surgery: 04/06/17 Post Op Day: 1 Assessment/Plan: Assessment: 67 yo F sp C5/6 corpectomy with C4-7 plating POD #1 Plan: -neuro stable -HOB up 30 degrees -CSF leak intraoperatively-HOB up -JAVIER in place -hard collar at all times -JAVIER to suction -post op xrays pending today -please call with neuro changes -plan for SDU and if does well we can transfer to floor tomorrow -pt updated on plan -call with any questions or concerns Subjective: Awake and alert. Follows commands. No new events or concerns. No f/c/n/v/d. Objective: Awake and alert PERRL, no facial droop CN 2-12 grossly intact COREY x4 + light touch C/D/I Neuro Check Frequency: per routine Urinary Catheter in Place: No - Physician Discussed Patient with : Nicole Patient Seen by : Nicole Neurosurgery Physical Exam - Vitals, I&O, Labs I and O 04/06/17 04/07/17 04/08/17 05:59 05:59 05:59 Intake Total 900 3355 Output Total 800 2180 Balance 100 1175 Weight 117.934 kg Intake: Oral (ml) 900 5 IV Intake (ml) 2950 IV Infused (ml) 400 NS W/ 20 KCl/L 1,000 ml @ 400 75 mls/hr IV CONT ALICJA Rx #:[id number] Output: Urine (ml) 800 1210 Bedside Commode 800 200 Catheter 1010 Estimated Blood Loss (ml) 400 JAVIER Drain Output (ml) 570 #1 Axel Lewis 570 Other: Intake Quantity Yes Sufficient Number of Voids Bedside Commode 2 Number of Stools Catheter 0 Vital Signs Temp Pulse Resp BP Pulse Ox 37.1 C 41 L 12 108/54 L 100 04/07/17 06:00 04/07/17 06:00 04/07/17 06:00 04/07/17 06:00 04/07/17 06:00 Laboratory Results 04/07/17 05:10 04/07/17 05:10 ICD10 Worksheet Patient Problems: Problems Problem Status Onset Cervical radicular pain Acute Cervical stenosis of spine Acute Lumbar back pain Acute Lumbar radicular pain Acute Lumbar stenosis Acute - ICD10 Problem Qualifiers (1) Cervical stenosis of spine (2) Cervical radicular pain (3) Lumbar back pain (4) Lumbar stenosis (5) Lumbar radicular pain
[2017-04-07] MEDS: oxyCODONE IR 5 MG TAB PO PRN (07:46)
[2017-04-07] MEDS: CALCIUM CARB W/VIT D 500 MG TAB PO SCH (10:33)
[2017-04-07] MEDS: (Difluprednate [Durezol] 1 DROP) OP SCH ×3 (10:33→20:39)
[2017-04-07] MEDS: clonazePAM 0.5 MG TAB PO SCH ×2 (10:33→20:39)
[2017-04-07] MEDS: amLODIPine BESYLATE 5 MG TAB PO SCH (10:33)
[2017-04-07] MEDS: DULoxetine 30 MG CAP PO SCH ×2 (10:34→20:40)
[2017-04-07] MEDS: METHOCARBAMOL 750 MG TAB PO SCH ×3 (10:34→20:41)
[2017-04-07] MEDS: POTASSIUM CL 20 MEQ TAB PO SCH (10:34)
[2017-04-07] MEDS: DOCUSATE SODIUM 100 MG CAP PO SCH ×2 (10:34→20:40)
[2017-04-07] MEDS: SENNOSIDES/DOCUSATE SODIUM TAB PO SCH ×2 (10:34→20:41)
[2017-04-07] MEDS: HYDROmorphONE/DILAUDID 6 MG/30 ML PCA IV PRN ×2 (11:13→22:53)
[2017-04-07] MEDS: TEARS/DEXTRAN 70/HYPROMELLOSE 15 ML OPHT.BTL OP SCH ×3 (12:13→20:33)
[2017-04-07] MEDS: FLUTICASONE NASAL 120 SPRAYS/16 GM MDI EACHNARE SCH (12:13)
[2017-04-07] MEDS: hydrALAZINE 20 MG/ML VIAL IVP PRN (12:13)
[2017-04-07] MEDS: DIAZEPAM 10 MG/2 ML SYR IVP PRN ×3 (12:39→23:19)
--- NOTE | 2017-04-07 13:05 | HOSPPROG ---
Hospitalist Progress Note Assessment/Plan: Assessment: 67-year-old female admitted with severe lower back pain in setting of severe C5-C6 stenosis and L2-L3 disease Plan: # Cervical stenosis. C5-C6, severe, POD#[address] Rivera - JAVIER drain anteriorly continued output - cont in cervical collar, remain NPO given her difficult swallow/positioning - CSF leak, keep HOB 30 deg # Chronic pain w/ continuous opiate and benzodiazepine dependency. Patient on high dose, two short-acting opiates and scheduled + PRN klonipin as outpt, having uncontrolled pain on dilaudid [employer] after holding precedex gtt - d/w RN, patient is opiate dependent and is likely having withdraw pain which is exacerbating her current, post-surgical pain - place her back on precedex gtt to gain control of pain via sedation while continuing low rate basal dilaudid - once controlled, then increase dilaudid basal rate slightly, and lower/wean precedex gtt - additionally, starting scheduled valium 5mg IV q6 to prevent benzo withdraw - monitor resp status closely to prevent oversedation, and follow all SDU/ICU policy/protocol for Rx # Acute encephalopathy. Evidenced by global brain dysfunction characterized as somnolence, agitation, all of which are changes from baseline, 2/2 toxic effects of Rx (precedex) required to accomplish pain relief - cont to balance pain mgmt w/ functional status # HTN. Chronic, uncontrolled in setting of pain and w/o oral Rx - start scheduled enalapril q6, cont IV hydralazine for SBP > 180 # Suspected atelectasis. Cont IS # Morbid Obesity. BMI 40, increases post-op risk of worsening mobility/morbidity - PT/OT - will likely require SNF at [place] # Constipation. Hold on bowel regimen until pain better controlled, may need suppository tomorrow Diet. Regular when wakes PPx. High risk, SCDs instead of lovenox given JAVIER drain output and SBP > 200 Code. DNR Dispo. ADD uncertain High complexity patient, high risk for worsening morbidity and mortality in the setting of uncontrolled pain requiring Precedex drip, Dilaudid [employer], IV antihypertensives. Subjective: patient initially very comfortable and cooperative; later crying in pain Objective: Vital Signs Temp Pulse Resp BP Pulse Ox 36.3 C 57 L 12 178/87 H 99 04/07/17 07:41 04/07/17 11:52 04/07/17 11:52 04/07/17 12:13 04/07/17 11:52 Laboratory Results 04/07/17 05:10 04/07/17 05:10 04/06/17 04/07/17 04/08/17 05:59 05:59 05:59 Intake Total 900 3355 Output Total 800 2180 Balance 100 1175 PT 14.1 SEC (12.0-15.0) 04/06/17 04:50 INR 1.07 (0.83-1.16) 04/06/17 04:50 - Physical Exam Constitutional: chronically ill appearing, obese, uncomfortable, No no apparent distress (severe distress), No not in pain (severe pain) Cardiovascular: edema (trace bilat LE), No systolic murmur, No irregularly irregular, No tachycardia, No bradycardia Respiratory: no respiratory distress, no rales or rhonchi, clear to auscultation Gastrointestinal: normoactive bowel sounds, soft, non-tender abdomen, no palpable masses Neurologic: No sensation intact bilaterally (subj paresthesias bilat dorsum of feet), No weakness (motor 5/5 bilat banquet attendant, 5/5 bilat toe movements), No facial droop Psychiatric: anxious, agitated, poor insight, poor judgement, poor memory, other (somnolent) ICD10 Worksheet Patient Problems: Problems Problem Status Onset Cervical stenosis of spine Acute Cervical radicular pain Acute Lumbar back pain Acute Lumbar stenosis Acute Lumbar radicular pain Acute
--- NOTE | 2017-04-07 14:37 | GCON ---
[f rep st] CONSULTATION HISTORY OF PRESENT ILLNESS: This patient is a 67-year-old female who has a longstanding history of b ack surgeries and chronic pain, opiate dependency, who was admitted with worsening pain and immobilit y on 04/03/2017. She underwent a C5-6 corpectomy and fusion on 04/06. She is fairly stable postoper atively without any complications, but has had some difficulty managing pain control. She has also h ad some difficulty with swallowing and failed a swallow evaluation this morning. She is morbidly obe se but does have a caregiver visit her at home and uses an electric wheelchair on a regular basis. S he has been quite somnolent. Her pain was treated with Precedex overnight, and the drip was eventual ly stopped, but she continued to have difficulty with pain, and so it was restarted until we can bett er control of it over this period of time. REVIEW OF SYSTEMS: Otherwise negative. PAST MEDICAL HISTORY: Includes: 1. Asthma. 2. Hypertension. 3. Glaucoma. PAST SURGICAL HISTORY: Includes: 1. Toe amputations on the right foot. 2. Cholecystectomy. 3. Breast biopsy, which was benign. 4. Left breast reduction. 5. Hysterectomy with oophorectomy. 6. Appendectomy. 7. Tonsillectomy. ALLERGIES: Multiple including Lyrica, Neurontin, Depakote, lisinopril, albuterol, adhesives. SOCIAL HISTORY: She actually lives in [place]. No smoking or significant alcohol. FAMILY HISTORY: Includes hypertension. CURRENT MEDICATIONS: Include Tylenol, [place], albuterol, Norvasc, Tessalon Perles, Dulcolax, Klonopin , clonidine, Precedex, Valium, docusate, Cymbalta, Vasotec, Lovenox, Flonase, Hyzaar, hydralazine, Di laudid, Atrovent, Synthroid, Robaxin, Singulair, oxycodone, Percocet, MiraLAX, Micardis. PHYSICAL EXAMINATION: VITAL SIGNS: She was afebrile but hypertensive at 178/87. Heart rate 90, in sinus rhythm. It was earlier as low as 44 without hypotension. Respiratory rate 12. Oxygen saturat ion 95% on 2 L. GENERAL: She was a morbidly obese woman with a C-collar in place who was easily ekaterina usable from sleep by voice, in no apparent distress, and not using any accessory muscles for breathin g. HEENT: Pupils equally round and reactive to light. Nonicteric and noninjected. Mucous membrane s are moist without erythema or exudate. NECK: Incisions appear to be clean and dry without soaked dressings, but I did not remove the C-collar. LUNGS: Breath sounds were distant but clear to auscul tation bilaterally. HEART: Regular rate and rhythm without murmurs, rubs, gallops. ABDOMEN: Soft, nontender, nondistended, without hepatosplenomegaly. EXTREMITIES: No clubbing, cyanosis, or edema. NEUROLOGICAL: Nonfocal. OBJECTIVE DATA: Includes a white count of 9.3, hematocrit 33, platelets of 177. Basic metabolic pearson el was fairly unremarkable save for a bicarb of 32. ASSESSMENT AND PLAN: 1. Recent cervical spine surgery. I believe the plan is for her to recover from this and eventually have lumbar surgery 6-[address]. Pain management is obviously the biggest issue at the moment. She is getting some relaxants in there as well as her Dilaudid patient controlled analgesia, and hopefully we will be able to wean the Precedex to off. 2. Cerebrospinal fluid leak as a result of her surgery. She has to keep the head of her bed elevate d and give this time, and presumably it will heal on its own. 3. Hypertension. Her blood pressure is better with pain control, but we will have to continue her o utpatient medications. 4. Asthma. This is well controlled at this time and requires no immediate change in management. /[id number]/MODL
[2017-04-07] MEDS: ENALAPRILAT DIHYDRATE 1.25 MG/ML VIAL IVP SCH ×2 (15:15→17:54)
[2017-04-07] MEDS: POTASSIUM Cl (KCl) 40 MEQ in D5W 1/2 NS 1,000 ML IV SCH (17:01)
[2017-04-07] MEDS: LOSARTAN/HCTZ 50/12.5 1 TAB PO SCH (20:40)
[2017-04-07] MEDS: MELOXICAM 15 MG PO SCH (20:41)
[2017-04-07] MEDS: HYDROmorphone HCL/NS 0.5 MG/ML SYR IVP PRN (22:20)
[2017-04-08] MEDS: DEXMEDETOMIDINE IN 0.9 % NACL 50 ML IV SCH ×8 (00:59→22:59)
[2017-04-08] MEDS: ENALAPRILAT DIHYDRATE 1.25 MG/ML VIAL IVP SCH ×4 (01:12→18:42)
[2017-04-08] MEDS: HYDROmorphone HCL/NS 0.5 MG/ML SYR IVP PRN (01:46)
[2017-04-08] MEDS: DIAZEPAM 10 MG/2 ML SYR IVP PRN (03:57)
[2017-04-08] MEDS: POTASSIUM Cl (KCl) 40 MEQ in D5W 1/2 NS 1,000 ML IV SCH ×2 (04:01→15:16)
[2017-04-08] MEDS: LEVOTHYROXINE 150 MCG TAB PO SCH (05:28)
[2017-04-08] MEDS ORDERED: METHOCARBAMOL 1000 MG/10 ML VIAL IV SCH (08:15)
[2017-04-08] MEDS: METHOCARBAMOL 1000 MG/10 ML VIAL IVP SCH ×2 (08:23→19:26)
[2017-04-08] MEDS: TEARS/DEXTRAN 70/HYPROMELLOSE 15 ML OPHT.BTL OP SCH ×3 (08:29→20:40)
[2017-04-08] MEDS ORDERED: DEXAMETHASONE 10 MG/ML VIAL IVP ONE (08:31)
--- NOTE | 2017-04-08 08:31 | NEUSURGPN ---
Date of Surgery: 04/06/17 Post Op Day: 2 Assessment/Plan: Assessment: 67 yo F sp C5/6 corpectomy with C4-7 plating POD #2 Plan: -HOB up 30 degrees -CSF leak intraoperatively-HOB up -JAVIER in place, leave to NO suction -hard collar at all times -post op xrays pending -patient unable to swallow medications, will continue to have ST eval/treat -patients right leg pain not controlled with current regimen, will give one dose Decadron today -discussed patient with Dr Rivera -please call neurosurgery with questions/concerns Subjective: No new events Objective: Awake and alert PERRL, no facial droop CN 2-12 grossly intact COREY x4 + light touch, hypersensitivity in RLE C/D/I Neuro Check Frequency: per routine Urinary Catheter in Place: Yes Urinary Catheter Indication: Other (Use Comment) (not ambulating) Catheter Insertion Date: 04/06/17 - Physician Discussed Patient with Dr.: Rivera Neurosurgery Physical Exam - Vitals, I&O, Labs I and O 04/07/17 04/08/17 04/09/17 05:59 05:59 05:59 Intake Total 3355 2714.4 Output Total 2180 2205 Balance 1175 509.4 Weight 117.934 kg Intake: Oral (ml) 5 IV Intake (ml) 2950 1370 IV Infused (ml) 400 1344.4 Dexmedetomidine in 0.9 % 193 NaCl 50 ml @ Titrate IV CONT ALICJA Rx#:[id number] HYDROmorphone HCL See 40.4 Protocol IV PRN PRN Rx#: [id number] NS W/ 20 KCl/L 1,000 ml @ 400 75 mls/hr IV CONT ALICJA Rx #:[id number] POTASSIUM Cl (KCl) 40 meq 1111 In D5w 1/2 Ns 1,000 ml @ 100 mls/hr IV CONT ALICJA Rx#:[id number] Output: Urine (ml) 1210 2000 Bedside Commode 200 Catheter 1010 2000 Estimated Blood Loss (ml) 400 JAVIER Drain Output (ml) 570 205 #1 Axel Lewis 570 205 Other: Intake Quantity No: NPO Sufficient Number of Stools Catheter 0 0 Vital Signs Temp Pulse Resp BP Pulse Ox 36.7 C 50 L 16 116/64 97 04/08/17 04:00 04/08/17 08:08 04/08/17 08:08 04/08/17 08:08 04/08/17 08:08 Laboratory Results 04/07/17 05:10 04/08/17 05:20 ICD10 Worksheet Patient Problems: Problems Problem Status Onset Cervical radicular pain Acute Cervical stenosis of spine Acute Lumbar back pain Acute Lumbar radicular pain Acute Lumbar stenosis Acute
[2017-04-08] MEDS: HYDROmorphONE/DILAUDID 6 MG/30 ML PCA IV PRN ×2 (09:03→15:09)
[2017-04-08] MEDS: clonazePAM 0.5 MG TAB PO SCH ×2 (09:40→20:13)
[2017-04-08] MEDS: amLODIPine BESYLATE 5 MG TAB PO SCH (09:40)
[2017-04-08] MEDS: CALCIUM CARB W/VIT D 500 MG TAB PO SCH (09:40)
[2017-04-08] MEDS: DOCUSATE SODIUM 100 MG CAP PO SCH ×2 (09:41→20:14)
[2017-04-08] MEDS: SENNOSIDES/DOCUSATE SODIUM TAB PO SCH ×2 (09:41→20:15)
[2017-04-08] MEDS: POTASSIUM CL 20 MEQ TAB PO SCH (09:41)
[2017-04-08] MEDS: DULoxetine 30 MG CAP PO SCH ×2 (09:41→20:14)
--- NOTE | 2017-04-08 09:56 | PDINTPN ---
Intermediate Card Tender Progress Note Assessment/Plan: Assessment/plan: 67 F with multiple back surgeries and narcotic dependence underwent C5/6 corpectomy and fusion 04/03/17 complicated by dural leak. Pain manageent has been challenging, though mostly controlled using dilaudid and precedex drips. Swallow was abnormal 04/07, likely related to perioperative edema. * C5/6 fusion- pearson is controlled though not on all outpatient meds given lack of swallow. ASSISTANT PROGRAM DIRECTOR seeing daily and will reassess today. Continue precedex, dilaudid, benzos, etc. Remains in IC as long as precedex is required * CSF christoph- remains at 30 degrees. Plans per surgery * asthma- stable without wheezing. No changes in management * HTN- stable with norvasc 5; clonidine 0.1 bid; vasotec 1.25 q 6; hyzaar 50/ 12.5; * Subjective: c/o mostly LE pain (chronic) but little neck pain. Still difficulty with swallow Objective: Vital Signs Temp Pulse Resp BP Pulse Ox 36.7 C 50 L 16 116/64 97 04/08/17 04:00 04/08/17 08:08 04/08/17 08:08 04/08/17 08:08 04/08/17 08:08 Laboratory Results 04/07/17 05:10 04/08/17 05:20 04/07/17 04/08/17 04/09/17 05:59 05:59 05:59 Intake Total 3355 2714.4 Output Total 2180 2205 Balance 1175 509.4 PT 14.1 SEC (12.0-15.0) 04/06/17 04:50 INR 1.07 (0.83-1.16) 04/06/17 04:50 Physical Exam - Physical Exam General Appearance: alert, no apparent distress, obese EENT: PERRL/EOMI Neck: other (collar) Respiratory: lungs clear, normal breath sounds, decreased breath sounds, No respiratory distress, No accessory muscle use Cardiac/Chest: regular rate, rhythm, No edema Abdomen: non-tender, soft, No distended Skin: normal color, warm/dry, No cyanosis Lymphatic: no adenopathy Extremities: No pedal edema Neuro/Psych: alert, normal mood/affect, oriented x 3 ICD10 Worksheet Patient Problems: Problems Problem Status Onset Cervical radicular pain Acute Cervical stenosis of spine Acute Lumbar back pain Acute Lumbar radicular pain Acute Lumbar stenosis Acute
[2017-04-08] MEDS: DIAZEPAM 5 MG/ML 1 ML SYR IVP PRN ×2 (10:25→17:33)
[2017-04-08] MEDS: FLUTICASONE NASAL 120 SPRAYS/16 GM MDI EACHNARE SCH (10:25)
[2017-04-08] MEDS: (Difluprednate [Durezol] 1 DROP) OP SCH ×3 (10:34→20:14)
--- NOTE | 2017-04-08 15:36 | ASMTCMCOM ---
CM Note CM Note Notes: Tried 2x to meet with patient. Very sleepy, lethargic unable to stay awake. When awake patient c/o severe pain so medicated. Patient has had cervical surgery and in a cervical collar. Has not been even able to dangle her feet from the bed due to pain. Left message for her son, Newton [phone] to call this CM. Date Signed: 04/08/2017 03:36 PM Electronically Signed By:Qing Garcia LCSW
--- NOTE | 2017-04-08 15:49 | HOSPPROG ---
Hospitalist Progress Note Assessment/Plan: Assessment: 67-year-old female admitted with severe lower back pain in setting of severe C5-C6 stenosis and L2-L3 disease Plan: # Cervical stenosis. C5-C6, severe, POD#[address] Rivera - JAVIER drain anteriorly - cont in cervical collar, getting swallow eval, d/w PILL PACKER, optimistic that patient may be able to advance tomorrow - patient reports that neck discomfort is actually fairly minimal and well controlled - CSF leak, keep HOB 30 deg # Chronic pain w/ continuous opiate and benzodiazepine dependency. Patient on high dose, short-acting opiates and scheduled + PRN klonipin as outpt, patient able to articulate today that her pain at home has been uncontrolled for past 2 months on this regimen, located in the back/legs, reports "nothing works" - d/w Dr. Rush, we agree that pain mgmt will be challenging in this patient, will attempt to get her back on her home PO Rx so that she will not withdraw from opiates/benzos, and then we can work on PRN dosing - currently, patient has yet to pass swallow eval, so she remains on valium IV moisés, dilaudid CERAMIC DESIGNER w/ basal rate, and precedex gtt for breakthrough - after we are able to cycle in POs, I would rec that we wean off the precedex gtt and work on coping mechanisms/non-pharmacologic methods, as patient has a chronic pain syndrome and escalating doses of opiates/benzos is unlikely to provide benefit, and the precedex will sedate her too much to engage in much needed therapy required to improve her functional status prior to subsequent surgery # Acute encephalopathy. Resolved when precedex lowered - cont to balance pain mgmt w/ functional status # HTN. Chronic, uncontrolled in setting of pain and w/o oral Rx - cont scheduled enalapril q6, cont IV hydralazine for SBP > 180 # Suspected atelectasis. Cont IS # Morbid Obesity. BMI 40, increases post-op risk of worsening mobility/morbidity - PT/OT - will likely require SNF at [place] # Chronic hypoxic respiratory failure. 2/2 OHS, patient reports that she uses home o2 when she's sedentary (which is most of the time) 2/2 habitus - cont home o2 # Constipation. Hold on bowel regimen until pain better controlled, may need suppository tomorrow Diet. Regular when wakes PPx. High risk, SCDs instead of lovenox given JAVIER drain output and SBP > 200 Code. DNR Dispo. ADD uncertain High complexity patient, high risk for worsening morbidity and mortality in the setting of uncontrolled pain requiring Precedex drip, Dilaudid CERAMIC DESIGNER, IV antihypertensives. Subjective: patient in less pain when sedated and lying on side, reports that ice chips worked OK, has not had BM Objective: Vital Signs Temp Pulse Resp BP Pulse Ox 37.5 C 44 L 12 163/80 H 100 04/08/17 12:17 04/08/17 12:17 04/08/17 12:17 04/08/17 12:30 04/08/17 12:17 Laboratory Results 04/07/17 05:10 04/08/17 05:20 04/07/17 04/08/17 04/09/17 05:59 05:59 05:59 Intake Total 3355 2714.4 Output Total 2180 2205 Balance 1175 509.4 PT 14.1 SEC (12.0-15.0) 04/06/17 04:50 INR 1.07 (0.83-1.16) 04/06/17 04:50 - Physical Exam Constitutional: no apparent distress, chronically ill appearing, obese, uncomfortable Cardiovascular: regular rate and rhythym, no murmur, rub, or gallop, edema ( trace bilat LE) Respiratory: inspiratory crackles (bilat bases), No reduced air movement, No expiratory wheeze, No bronchial breath sounds, No respiratory distress Gastrointestinal: soft, non-tender abdomen, no palpable masses, No normoactive bowel sounds (hypoactive bowel sounds), No guarding Neurologic: AAOx3, weakness (4/5 motor bilat toes), No sensation intact bilaterally (subjective paresthesias bilat feet laterally) Psychiatric: not anxious, flat affect, other (lethargic but arousable), No agitated ICD10 Worksheet Patient Problems: Problems Problem Status Onset Cervical stenosis of spine Acute Cervical radicular pain Acute Lumbar back pain Acute Lumbar stenosis Acute Lumbar radicular pain Acute
[2017-04-08] MEDS: LOSARTAN/HCTZ 50/12.5 1 TAB PO SCH (20:14)
[2017-04-08] MEDS: MELOXICAM 15 MG PO SCH (20:15)
[2017-04-08] MEDS: MONTELUKAST SODIUM 10 MG TAB PO SCH (20:15)
[2017-04-08] MEDS: ENOXAPARIN 40 MG/0.4 ML SYR SC SCH (20:40)
[2017-04-08] MEDS: hydrALAZINE 20 MG/ML VIAL IVP PRN (22:12)
[2017-04-09] MEDS: POTASSIUM Cl (KCl) 40 MEQ in D5W 1/2 NS 1,000 ML IV SCH (00:34)
[2017-04-09] MEDS: ENALAPRILAT DIHYDRATE 1.25 MG/ML VIAL IVP SCH ×4 (01:03→18:09)
[2017-04-09] MEDS: HYDROmorphONE/DILAUDID 6 MG/30 ML PCA IV PRN ×3 (01:15→17:25)
[2017-04-09] MEDS: METHOCARBAMOL 1000 MG/10 ML VIAL IVP SCH ×3 (01:21→16:30)
[2017-04-09] MEDS: DEXMEDETOMIDINE IN 0.9 % NACL 50 ML IV SCH ×4 (02:05→16:27)
[2017-04-09] MEDS: DIAZEPAM 5 MG/ML 1 ML SYR IVP PRN ×3 (03:02→15:32)
[2017-04-09 04:46] LABS: PLATELET COUNT 169 10^3/uL (150-400)
[2017-04-09] MEDS: LEVOTHYROXINE 150 MCG TAB PO SCH (06:47)
--- NOTE | 2017-04-09 08:08 | SOAPPROG ---
SOAP Progress Note Assessment/Plan: Assessment: Post Op Day: 3 Assessment/Plan: Assessment: 67 yo F sp C5/6 corpectomy with C4-7 plating POD #3. Has had clearish drainage from JAVIER site overnight and patient has refused to have her bed up to 30 degrees. Plan: -HOB up 30 degrees -Remove JAVIER per Dr. Rivera today. RN instructed to do this. -hard collar at all times, will have [employer] come and fit for smaller collar. RN will call them. -post op xrays pending -patient unable to swallow medications, will have ST eval/treat this AM. -patient with bilateral hypersensitivity in legs, she was encouraged and agrees to pump her feet and move legs regularly -She is on Lovenox and SCDs -please call neurosurgery with questions/concern -discussed patient with Dr Rivera 04/09/17 08:17 Subjective: lying on right side in bed. Awake, conversant and reporting bilateral LE hyper sensitivity. She feels like her right leg pain and movement is "better" but still quite limited. She has refused to have her HOB at 30 degrees overnight due to increased back pain in that position. SHe is not tolerating her collar very well. She feels like her right leg is moving better and states it was "paralyzed" before surgery. Objective: Vital Signs Temp Pulse Resp BP Pulse Ox 36.7 C 42 L 13 164/79 H 100 04/09/17 04:00 04/09/17 04:00 04/09/17 04:00 04/09/17 07:06 04/09/17 04:00 Laboratory Results 04/09/17 04:25 04/09/17 06:44 04/08/17 04/09/17 04/10/17 05:59 05:59 05:59 Intake Total 2714.4 3396 Output Total 2205 1077 Balance 509.4 2319 PT 14.1 SEC (12.0-15.0) 04/06/17 04:50 INR 1.07 (0.83-1.16) 04/06/17 04:50 Neuro: A+OX 4 follows commands x 4 5/5 LUE right arm tric/delt unable to test due to patient refusing to move however loan processing supervisor and bicep is 5/5. Sensation normal in arms. hypersensitive in bilateral LE 5/5 bilat PF/DF she will bring both knees upwards but cannot tolerate pressure on legs to test resistance due to pain. neuro exam limited due to pain and poor effort Incision: glued (dry) JAVIER site: no fifi drainage however dressing has some saturation that appears clearish JAVIER: 27 ml overnight. ICD10 Worksheet Patient Problems: Problems Problem Status Onset Cervical radicular pain Acute Cervical stenosis of spine Acute Lumbar back pain Acute Lumbar radicular pain Acute Lumbar stenosis Acute
[2017-04-09] MEDS ORDERED: LIDOCAINE 4%/MENTHOL 1% PATCH TD PRN (09:03)
[2017-04-09] MEDS: ENOXAPARIN 40 MG/0.4 ML SYR SC SCH ×2 (10:28→19:43)
[2017-04-09] MEDS: clonazePAM 0.5 MG TAB PO SCH ×2 (11:54→19:44)
[2017-04-09] MEDS: DULoxetine 30 MG CAP PO SCH ×2 (11:54→19:42)
--- NOTE | 2017-04-09 12:05 | ASMTCMCOM ---
CM Note CM Note Notes: Patient remains sleepy, lethargic due to pain medications for severe pain. No response from her son, Newton rosado. CM will follow. Date Signed: 04/09/2017 12:04 PM Electronically Signed By:Shanae Tejada LCSW
[2017-04-09 12:18] VITALS: O2SAT 98
[2017-04-09] MEDS: amLODIPine BESYLATE 5 MG TAB PO SCH (12:23)
[2017-04-09] MEDS: POTASSIUM CL 20 MEQ TAB PO SCH (12:25)
[2017-04-09] MEDS: DOCUSATE SODIUM 100 MG CAP PO SCH ×2 (12:25→19:43)
[2017-04-09] MEDS: TEARS/DEXTRAN 70/HYPROMELLOSE 15 ML OPHT.BTL OP SCH ×2 (12:26→17:30)
[2017-04-09] MEDS: FLUTICASONE NASAL 120 SPRAYS/16 GM MDI EACHNARE SCH (12:26)
[2017-04-09] MEDS: CALCIUM CARB W/VIT D 500 MG TAB PO SCH (12:26)
[2017-04-09] MEDS: (Difluprednate [Durezol] 1 DROP) OP SCH ×2 (12:27→17:13)
[2017-04-09] MEDS: oxyCODONE IR 5 MG TAB PO PRN (13:29)
[2017-04-09] MEDS: SENNOSIDES/DOCUSATE SODIUM TAB PO SCH ×2 (13:35→19:44)
--- NOTE | 2017-04-09 14:39 | PDINTPN ---
Diabetes Education Coordinator Progress Note Assessment/Plan: Assessment/plan: 67 F with multiple back surgeries and narcotic dependence underwent C5/6 corpectomy and fusion 04/03/17 complicated by dural leak. Pain manageent has been challenging, though mostly controlled using dilaudid and precedex drips. Swallow was abnormal 04/07, likely related to perioperative edema. * C5/6 fusion/plates- Hope to pass swallow so she can resume home meds in effort to "normalize" her regimen * CSF leak- Poor compliance with 30 deg restriction * asthma- stable without wheezing. No changes in management * HTN- stable with norvasc 5; clonidine 0.1 bid; vasotec 1.25 q 6; hyzaar 50/ 12.5; * 04/09/17 14:35 Subjective: pain managment challenges continue, mostly related to legs and poor compliance Objective: Vital Signs Temp Pulse Resp BP Pulse Ox 36.9 C 47 L 12 133/73 H 98 04/09/17 12:10 04/09/17 12:10 04/09/17 12:10 04/09/17 13:39 04/09/17 12:10 Laboratory Results 04/09/17 04:25 04/09/17 06:44 04/08/17 04/09/17 04/10/17 05:59 05:59 05:59 Intake Total 2714.4 3396 Output Total 2205 1077 Balance 509.4 2319 PT 14.1 SEC (12.0-15.0) 04/06/17 04:50 INR 1.07 (0.83-1.16) 04/06/17 04:50 Physical Exam - Physical Exam General Appearance: alert, no apparent distress, obese EENT: PERRL/EOMI Neck: supple Respiratory: lungs clear, decreased breath sounds, No respiratory distress, No accessory muscle use Cardiac/Chest: regular rate, rhythm, No edema Abdomen: soft, No distended Skin: normal color, warm/dry Lymphatic: no adenopathy Extremities: No pedal edema Neuro/Psych: alert, cognition abnormalities ICD10 Worksheet Patient Problems: Problems Problem Status Onset Cervical radicular pain Acute Cervical stenosis of spine Acute Lumbar back pain Acute Lumbar radicular pain Acute Lumbar stenosis Acute
[2017-04-09] MEDS: HYDROCODONE/APAP 5/325 TAB PO PRN (18:09)
--- NOTE | 2017-04-09 18:46 | HOSPPROG ---
Hospitalist Progress Note Assessment/Plan: Assessment: 67-year-old female admitted with severe lower back pain in setting of severe C5-C6 stenosis and L2-L3 disease with chronic pain syndrome Plan: # Cervical stenosis. C5-C6, severe, POD#[address] Rivera - JAVIER drain removed - cont in cervical collar, getting swallow eval now, d/w COMPUTATIONAL SCIENTIST, optimistic that patient may be able to advance today - patient reports that neck discomfort is actually fairly minimal and well controlled - CSF leak continues, keep HOB 30 deg # Chronic pain w/ continuous opiate and benzodiazepine dependency. Patient on high dose, short-acting opiates and scheduled + PRN klonipin as outpt, patient able to articulate that her pain at home has been uncontrolled for past 2 months on this regimen, located in the back/legs, reports "nothing works" - pain mgmt will be challenging in this patient, will attempt to get her back on her home PO Rx so that she will not withdraw from opiates/benzos, and then we can work on PRN dosing - after we are able to cycle in POs, I would rec that we wean off the precedex gtt, DC moisés IV valium, restart klonipin, and work on coping mechanisms/non- pharmacologic methods, as patient has a chronic pain syndrome and escalating doses of opiates/benzos is unlikely to provide benefit, and the precedex will sedate her too much to engage in much needed therapy required to improve her functional status prior to subsequent surgery # Acute encephalopathy. Resolved when precedex lowered - cont to balance pain mgmt w/ functional status # HTN. Chronic, uncontrolled in setting of pain and w/o oral Rx, Cr/K wnl - now that she can take PO, stop enalapril, restart home Rx - rec discussion w/ patient to determine why she is on two different ARBs # Suspected atelectasis. Cont IS # Morbid Obesity. BMI 40, increases post-op risk of worsening mobility/morbidity - PT/OT - will likely require SNF at [place] # Chronic hypoxic respiratory failure. 2/2 OHS, patient reports that she uses home o2 when she's sedentary (which is most of the time) 2/2 habitus - cont home o2 # Constipation. Start bowel regimen now Diet. Regular when wakes PPx. High risk, lovenox Code. DNR Dispo. ADD uncertain High complexity patient, high risk for worsening morbidity and mortality in the setting of uncontrolled pain requiring Precedex drip, Dilaudid DISABILITY LIAISON OFFICER. Subjective: patient reports left arm pain, ongoing leg pain Objective: Vital Signs Temp Pulse Resp BP Pulse Ox 36.7 C 58 L 10 L 135/70 H 98 04/09/17 16:00 04/09/17 16:00 04/09/17 16:00 04/09/17 16:00 04/09/17 16:00 Laboratory Results 04/09/17 04:25 04/09/17 06:44 04/08/17 04/09/17 04/10/17 05:59 05:59 05:59 Intake Total 2714.4 3396 1613 Output Total 2205 1077 575 Balance 509.4 2319 1038 PT 14.1 SEC (12.0-15.0) 04/06/17 04:50 INR 1.07 (0.83-1.16) 04/06/17 04:50 - Physical Exam Constitutional: chronically ill appearing, obese, uncomfortable, No not in pain (moderate) Cardiovascular: regular rate and rhythym, no murmur, rub, or gallop, edema ( trace bilat LE) Respiratory: reduced air movement (poor insp effort), inspiratory crackles ( bilat bases), No expiratory wheeze, No bronchial breath sounds Gastrointestinal: soft, non-tender abdomen, distension, No normoactive bowel sounds (hypoactive bowel sounds), No guarding Neurologic: AAOx3 Psychiatric: thought process linear, anxious, flat affect, No agitated ICD10 Worksheet Patient Problems: Problems Problem Status Onset Cervical radicular pain Acute Cervical stenosis of spine Acute Lumbar back pain Acute Lumbar radicular pain Acute Lumbar stenosis Acute
[2017-04-09 19:38] VITALS: BP 134/70; PULSE 57; RESP 11; TEMP 98.3
[2017-04-09] MEDS: LOSARTAN/HCTZ 50/12.5 1 TAB PO SCH (19:43)
[2017-04-09] MEDS: MONTELUKAST SODIUM 10 MG TAB PO SCH (19:44)
[2017-04-09] MEDS: MELOXICAM 15 MG PO SCH (19:52)
[2017-04-09] MEDS ORDERED: PATCH REMOVAL 1 EA PATCH TD SCH (21:00)
--- NOTE | 2017-04-09 23:20 | EDPHY ---
Inpatient Procedure Narrative: I was called to the ICU to assist with airway compromise. Patient is a 67 year old female, 4 days post op from an anterior cervical spine procedure. She did have a dural injury and has had some CSF leakage. JAVIER drain had been pulled earlier this morning. Nursing staff noted respiratory distress about 30 minutes ago and an increased swelling was noted along her neck, concerning for an expanding hematoma. Patient is on lovenox. This rapidly progressed to significant airway compression and respiratory distress. Patient is a DNR/ DNI and nursing staff reconfirmed her wishes to avoid intubation within the last 10 minutes. On my arrival the patient has agonal respirations. She became apneic within minutes of my arrival. In an attempt to relieve the external airway compression, I opened the former JAVIER drainage site with a 15. Scalpel. Significant amount of blood was expressed. Dr. Dagoberto Gayle, trauma surgeon, arrived at bedside. Patient's former incision site was then opened by myself and a large blood clot was expressed. Despite these efforts the patient did not regain respiratory effort and remained apneic and pulseless. Dr. Gayle, trauma surgeon, Dr. Valentin, hospitalist, and Dr. Rivera, neurosurgeon, were in all present at bedside and we are in agreement to honor the patient's wishes. She was pronounced at that time.
--- NOTE | 2017-04-09 23:34 | SOAPPROG ---
SOAP Progress Note Assessment/Plan: Was called in by nursing staff for neck swelling and labored breathing. I arrived at 2299 and the patient was pulseless and not breathing. The ICU staff , hospitalist, ER attending, and trauma surgeon had responded and opened the neck at the bedside removing a large hematoma from the neck, but the patient never had return of respirations or pulse. She was adamant about her DNR status so no CPR or intubation was performed. The nursing staff reported that the last thing she said when her respiratory status was declining was "please don't intubate me, I am DNR". I had just seen her on rounds at 1999 and she was doing relatively well, she had some moderate neck swelling consistent with the last few days, but her voice had improved and she had passed her swallow. I had a good conversation with her about her pain control and how we could try to help her in the future. She said that other than her leg pain, she did not have any discomfort at the time. I tried to call the number she had given us for her son, Newton ([phone]), but there was no answer. No one has been able to reach the family since surgery and Blanca had reported that they were estranged. I would be happy to speak with any family in the future if we are able to reach them. Time of : 2299 Objective: Vital Signs Temp Pulse Resp BP Pulse Ox 36.8 C 57 L 11 L 134/70 H 98 04/09/17 19:36 04/09/17 19:36 04/09/17 19:36 04/09/17 19:36 04/09/17 19:36 Laboratory Results 04/09/17 04:25 04/09/17 06:44 04/08/17 04/09/17 04/10/17 05:59 05:59 05:59 Intake Total 2714.4 3396 1613 Output Total 2205 1077 575 Balance 509.4 2319 1038 PT 14.1 SEC (12.0-15.0) 04/06/17 04:50 INR 1.07 (0.83-1.16) 04/06/17 04:50 patient pulseless and not breathing when I arrived. Drs. Singh and Irwin at the bedside and had opened the neck incision evacuating the hematoma, but she never had return of respirations or pulse. Time of : 2299. ICD10 Worksheet Patient Problems: Problems Problem Status Onset Cervical radicular pain Acute Cervical stenosis of spine Acute Lumbar back pain Acute Lumbar radicular pain Acute Lumbar stenosis Acute
--- NOTE | 2017-04-10 12:44 | ASMTCMCOM ---
CM Note CM Note Notes: FAMILY FOUND Step son, Pilo Solitario reached out to me: he can be reached at [phone]. Newton was left messages on his cell phone x2 and a text was sent. Still no response. Pilo is glad to robotics engineer until Newton comes back into the picture. Date Signed: 04/10/2017 12:44 PM Electronically Signed By:Amrita Calle RN
--- NOTE | 2017-04-10 18:57 | ASMTCMCOM ---
CM Note CM Note Notes: Received a call from son, Newton . He explained that he was at work and wasn't able to answer the phone. Tomorrow he will let his boss know that he has to answer the phone. Newton let me know that Blanca wanted to be buried in [place], [place], next to her . Newton is asking Pilo, step brother, for the mortuary used for dad. Newton will send me the name of the mortuary when he gets the name. He will begin phone calls tomorrow but will need direction. Case Management will continue to follow. Date Signed: 04/10/2017 06:56 PM Electronically Signed By:Amrita Calle RN
--- NOTE | 2017-04-19 02:06 | GDS ---
[f rep st] DISCHARGE SUMMARY TIME OF : 2299. CAUSE OF : PEA arrest secondary to acute hypoxic respiratory failure and acute anterior neck he matoma. DISCHARGE DIAGNOSES: 1. Pulseless electrical activity arrest. 2. Uiour-tpz-tngoiwg hypoxic respiratory failure. 3. Acute anterior neck hematoma secondary to circulating anticoagulant from Lovenox. 4. Severe cervical stenosis at C5-C6. 5. Chronic pain with continuous opiate and benzodiazepine dependency. 6. Acute encephalopathy. 7. Chronic hypertension. 8. Morbid obesity with BMI of 40. 9. Suspected acute atelectasis. 10. Constipation. 11. Chronic L2-L3 adjacent segment disease. CONSULTATIONS: 1. Neurosurgery. 2. Hospital Medicine. 3. Pulmonary Critical Care. PROCEDURE: C5-C6 corpectomy and fusion, 04/06/2017. CHIEF COMPLAINT: Acute worsening of chronic leg pain. HOSPITAL COURSE: The patient was admitted for acute worsening of chronic pain which had placed her i n significant distress for the past 2-1/2 months. The patient had a chronic pain syndrome and was ch ronically dependent on opiates and benzodiazepines. The patient came from [place] to [facility] for further evaluation. She was noted to have severe lower extremity pain in the setting of L2-L3 adjacent segment disease, but she was noted on MRI to have severe C5-C6 stenosis requiring surgical i ntervention prior to performing any intervention in the lumbar spine as undertreated cervical disease could eventually render any surgical intervention in the lumbar spine a moot point. Consequently, oswaldo he patient was admitted to the Medicine Service on 04/03/2017 for preoperative evaluation and underwe nt C5-C6 corpectomy and fusion on 04/06/2017. After the patient's surgery, pain management was a sig nificant issue. The patient required a Precedex drip as well as Dilaudid OFFICE CORRESPONDENT with a basal infusion i n order to prevent opiate withdrawal. It took a couple of days before the patient was able to safely be evaluated for oral intake given the patient's acute encephalopathy following surgery as well as h er challenges with head-of-bed and activity recommendations. Method of basal rate Dilaudid through t he OFFICE CORRESPONDENT was able to keep the patient reasonably comfortable in addition to the Precedex drip that she was receiving, and we weaned the Precedex drip so that effective neurologic exams as well as pain reid ssessments could take place. The patient was noted to have a CSF leak, and she required head-of-bed elevation, but, as mentioned above, she had difficulty adhering to this recommendation given her ongo ing chronic lower extremity pain. The pain that the patient experienced postoperatively was ongoing in the lower extremities most likely secondary to either her unresolved lumbar spine disease or her c hronic pain syndrome. She had very minimal pain in the cervical spine postoperatively, and we worked with the patient when she was cognitively able to undergo swallow evaluations and advance her oral d iet. On 04/09/2017, the patient was cognitively capable to undergo the swallow evaluation, and her p ain management was actually at its best. We were in the process of cycling in some of her oral pain medications including high-dose oxycodone immediate release and clonazepam. The patient was working with the therapy evaluations, and since her JAVIER drain output had slowed, it was able to be safely shannon syed, and she was able to be safely initiated on prophylactic dosing of Lovenox for DVT prevention. S he was evaluated by Dr. Rivera around 8 p.m. on 04/09/2017, and at that time, the patient was doing we ll as documented in the chart. After that time, the patient began experiencing some hoarseness as we ll as some anterior neck swelling, and the Hospital Medicine Service evaluated the patient at bedside , calling the trauma surgeon and emergency department provider to assist in evaluating the anterior n rk. Dr. Rivera was also called. During this collaborative evaluation, it was determined that the pa tient was most likely experiencing an anterior neck hematoma which was likely compressing the trachea , resulting in acute upper airway obstruction and [id number]-[id number] respiratory failure. The hematoma had most likely acutely developed in the setting of circulating anticoagulant Lovenox, which had bee n appropriately initiated between 48 and 72 hours postoperatively to prevent DVT-PE in the setting of no signs of active bleeding. The patient was specifically asked whether she would like to retract her do not resuscitate/do not in tubate status, and the patient firmly reasserted that she wanted to maintain her do not resuscitate/d o not intubate status. As an attempt at a life-saving measure, the trauma surgeon performed an anter ior neck incision and evacuated physical clot from the anterior neck, but the patient's airway compro mise and resultant respiratory failure ultimately resulted in pulseless electrical activity arrest an d expiration. The exact time of was 11 p.m. there was nothing more that could be done for the patient from a surgical or medical perspective. Our condolences go out to her family. Carole Rivera attempted to reach them by phone and was unable to connect. /[id number]/MODL
== END 2017-04-09 23:00 | disposition expired | DRG 471 ==
LOC: F3N 12:58 → PREOBSVTOIN 13:02 → F2N 04-06 11:56
PROVIDERS: ADMIT Internal Medicine Pulmonary Disease; ATTEND Internal Medicine Pulmonary Disease
PROC: 02HV33Z Insertion of Infusion Device into Superior Vena Cava, Percutaneous Approach (ICD-10-PCS; 2017-04-04)
PROC: 0PB30ZZ Excision of Cervical Vertebra, Open Approach (ICD-10-PCS; principal; 2017-04-06 08:00)
PROC: 0RT30ZZ Resection of Cervical Vertebral Disc, Open Approach (ICD-10-PCS; principal; 2017-04-06 08:00)
PROC: 0RG20A0 Fusion of 2 or more Cervical Vertebral Joints with Interbody Fusion Device, Anterior Approach, Anterior Column, Open Approach (ICD-10-PCS; principal; 2017-04-06 08:00)
PROC: 01N10ZZ Release Cervical Nerve, Open Approach (ICD-10-PCS; principal; 2017-04-06 08:00)
DX: M40.202 Unspecified kyphosis, cervical region (principal); M25.78 Osteophyte, vertebrae; G97.0 Cerebrospinal fluid leak from spinal puncture; G97.61 Postprocedural hematoma of a nervous system organ or structure following a nervous system procedure; D68.32 Hemorrhagic disorder due to extrinsic circulating anticoagulants; T45.515A Adverse effect of anticoagulants, initial encounter; G93.40 Encephalopathy, unspecified; J96.21 Acute and chronic respiratory failure with hypoxia; M67.80 Other specified disorders of synovium and tendon, unspecified site; M48.061 Spinal stenosis, lumbar region without neurogenic claudication; E66.2 Morbid (severe) obesity with alveolar hypoventilation; Z68.41 Body mass index [BMI] 40.0-44.9, adult; G89.29 Other chronic pain; F11.20 Opioid dependence, uncomplicated; K59.00 Constipation, unspecified; I10 Essential (primary) hypertension; G62.9 Polyneuropathy, unspecified; H40.9 Unspecified glaucoma; J45.909 Unspecified asthma, uncomplicated; Z98.1 Arthrodesis status; Z66 Do not resuscitate; Z89.421 Acquired absence of other right toe(s)
CPT/HCPCS: 92526-GN; 92610-GN; 97161-GP; 97164-GP; 97166-GO; 97168-GO; 97530-GP; 97535-GO; C1713; C1751; G8978-GP-CK; G8978-GP-CL; G8979-GP-CJ; G8979-GP-CK; G8987-GO-CK; G8987-GO-CM; G8988-GO-CI; G8988-GO-CK; G8996-GN-CL; G8997-GN-CI; J0171; J0360; J0690; J1100; J1170; J1650; J2250; J2704; J2800; J3010; J3360; J3480

== ENCOUNTER → 2017-04-03 | Outpatient (CLI) | payer OTHER | LOC: FIMAGING 10:47 | PROVIDERS: ATTEND Physician Assistant | DX: M48.062 Spinal stenosis, lumbar region with neurogenic claudication (principal); Z98.1 Arthrodesis status ==